=== PATIENT | male | born 1980 | race Caucasian/White ===

== ENCOUNTER 2021-03-04 17:32 | Emergency (ER) | payer MEDICAID ==
[2021-03-04] MEDS ORDERED: Sodium Chloride 0.9% 10 ML Syringe FLUSH PRN (17:54)
[2021-03-04] MEDS ORDERED: 50% Dextrose in Water 50 ML Syringe IVPUSH PRN (18:15)
--- NOTE | 2021-03-04 18:24 | EDM.PDOC ---
ED HPI GENERAL MEDICAL PROBLEM - General Chief Complaint: Neuro Symptoms/Deficits Stated Complaint: DOUBLE VISION/HISTORY OF STROKES Time Seen by Provider: 03/04/21 17:49 Source of Information: Reports: Patient History Limitations: Reports: No Limitations - History of Present Illness INITIAL COMMENTS - FREE TEXT/NARRATIVE: The patient presents with his sister for double vision. This has been going on for about a week. He also has been having ringing in his ears for about a month. He has a history of a CVA with right sided weakness. In June of 2020. He woke up with some stroke like symptoms. He was found to have a septal defect in his heart. 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 He says the double vision comes and goes. He has no headache, fever, chills, cough, chest pain, shortness of breath, abdominal pain, nausea or vomiting. Onset: Gradual Duration: Week(s): (1) Severity: Mild Improves with: Reports: None Worsens with: Reports: None Associated Symptoms: Reports: No Other Symptoms - Related Data Allergies Allergy/AdvReac Type Severity Reaction Status Date / Time No Known Allergies Allergy Verified 03/04/21 17:51 Home Meds: Home Meds Apixaban [Eliquis] 5 mg PO BID 03/04/21 [History] Baclofen 10 mg PO PCBREAKFAST 03/04/21 [History] Baclofen 20 mg PO PCDINNER 03/04/21 [History] FLUoxetine HCl [Fluoxetine HCl] 60 mg PO DAILY 03/04/21 [History] Metoprolol Tartrate 75 mg PO BID 03/04/21 [History] buPROPion HCL [Bupropion Xl] 300 mg PO DAILY 03/04/21 [History] ED ROS GENERAL - Review of Systems Review Of Systems: See Below Constitutional: Reports: No Symptoms HEENT: Reports: Other (Double vision and ringing in his ears.) Respiratory: Reports: No Symptoms Cardiovascular: Reports: No Symptoms Endocrine: Reports: No Symptoms GI/Abdominal: Reports: No Symptoms : Reports: No Symptoms Musculoskeletal: Reports: No Symptoms ED EXAM, NEURO - Physical Exam Exam: See Below Exam Limited By: No Limitations General Appearance: Alert, No Apparent Distress Eye Exam: Bilateral Eye: EOMI Ears: Normal External Exam Nose: Normal Inspection Head Exam: Atraumatic, Normocephalic Neck: Normal Inspection Respiratory/Chest: No Respiratory Distress, Lungs Clear, Normal Breath Sounds Cardiovascular: Regular Rate, Rhythm, No Edema, No Murmur GI/Abdominal: Soft, Non-Tender, No Organomegaly, No Mass Neurological: Alert, Oriented x 3, Other (Right arm is spastic and right leg has weakness.) #1 Interpretation EKG Date: 03/04/21 Time: 17:56 Rhythm: NSR Rate (Beats/Min): 64 [place]: Normal P-Wave: Present QRS: Normal ST-T: Normal QT: Normal Course - Vital Signs Last Recorded V/S: Last Vital Signs Temp 97.6 F 03/04/21 17:45 Pulse 67 03/04/21 17:45 Resp 12 03/04/21 17:45 BP 131/73 03/04/21 17:45 Pulse Ox 100 03/04/21 17:45 - Orders/Labs/Meds Orders: Active Orders 24 hr Category Date Time Status Cardiac Monitoring [RC] . DIRECTED Care 03/04/21 17:54 Active Peripheral IV Care [RC] . DIRECTED Care 03/04/21 17:55 Active CORONAVIRUS COVID-19 AVELINO [MOLEC] Stat Lab 03/04/21 18:30 Received Dextrose 50% in Water Med 03/04/21 18:15 Active 25 ml IVPUSH ASDIRECTED PRN Sodium Chloride 0.9% [Saline Flush] Med 03/04/21 17:54 Active 10 ml FLUSH ASDIRECTED PRN Peripheral IV Insertion Adult [OM.PC] Stat Oth 03/04/21 17:54 Ordered Medication Orders Dextrose/Water (50% Dextrose In Water 50 Ml Syringe) 25 ml IVPUSH ASDIRECTED PRN PRN Reason: Hypoglycemia Last Admin: 03/04/21 18:28 Dose: 25 ml Documented by: JULIANA Sodium Chloride (Sodium Chloride 0.9% 10 Ml Syringe) 10 ml FLUSH ASDIRECTED PRN PRN Reason: Keep Vein Open Last Admin: 03/04/21 18:00 Dose: 10 ml Documented by: DESMOND Labs: Laboratory Tests 03/04/21 03/04/21 03/04/21 Range/Units 17:55 17:55 17:57 WBC 5.46 (4.23-9.07) K/mm3 RBC 5.06 (4.63-6.08) M/mm3 Hgb 13.8 (13.7-17.5) gm/dl Hct 42.8 (40.1-51.0) % MCV 84.6 (79.0-92.2) fl MCH 27.3 (25.7-32.2) pg MCHC 32.2 (32.2-35.5) g/dl RDW Std Deviation 41.8 (35.1-43.9) fL Plt Count 323 (163-337) K/mm3 MPV 10.3 (9.4-12.3) fl Neut % (Auto) 49.4 (34.0-67.9) % Lymph % (Auto) 41.4 (21.8-53.1) % Mcdonald % (Auto) 6.8 (5.3-12.2) % Eos % (Auto) 2.2 (0.8-7.0) Baso % (Auto) 0.2 (0.1-1.2) % Neut # (Auto) 2.70 (1.78-5.38) K/mm3 Lymph # (Auto) 2.26 (1.32-3.57) K/mm3 Mcdonald # (Auto) 0.37 (0.30-0.82) K/mm3 Eos # (Auto) 0.12 (0.04-0.54) K/mm3 Baso # (Auto) 0.01 (0.01-0.08) K/mm3 Sodium 142 (136-145) mEq/L Potassium 3.4 L (3.5-5.1) mEq/L Chloride 104 (98-107) mEq/L Carbon Dioxide 32 (21-32) mEq/L Anion Gap 9.4 (5-15) BUN 23 H (7-18) mg/dL Creatinine 1.0 (0.7-1.3) mg/dL Est Cr Clr Drug Dosing TNP Estimated GFR (MDRD) > 60 (>60) mL/min BUN/Creatinine Ratio 23.0 H (14-18) Glucose 88 (70-99) mg/dL POC Glucose 69 L (70-99) mg/dL Calcium 8.7 (8.5-10.1) mg/dL Total Bilirubin 0.5 (0.2-1.0) mg/dL AST 13 L (15-37) U/L ALT 22 (16-63) U/L Alkaline Phosphatase 78 (46-116) U/L Troponin I < 0.017 (0.00-0.056) ng/mL Total Protein 7.4 (6.4-8.2) g/dl Albumin 3.9 (3.4-5.0) g/dl Globulin 3.5 gm/dL Albumin/Globulin Ratio 1.1 (1-2) Meds: Medications Generic Name Dose Route Start Last Admin Trade Name Adamsq PRN Reason Stop Dose Admin Dextrose/Water 25 ml 03/04/21 18:15 03/04/21 18:28 50% Dextrose In Water 50 Ml Syringe IVPUSH 25 ml ASDIRECTED PRN Administration Hypoglycemia Sodium Chloride 10 ml 03/04/21 17:54 03/04/21 18:00 Sodium Chloride 0.9% 10 Ml Syringe FLUSH 10 ml ASDIRECTED PRN Administration Keep Vein Open - Re-Assessments/Exams Free Text/Narrative Re-Assessment/Exam: 03/04/21 18:25 A stroke alert was called. The patient's last time known well was Monday the . I ordered an IV saline lock, EKG, CT of his head and labs. 03/04/21 19:14 His EKG shows a NSR with no acute changes. His CBC was negative. His K was low at 3.4. His glucose was low at 69. I gave him some IV glucose to bring that up. His troponin was negative. The CT of his head shows low density within the left posterior frontal and parietal regions with additional low density extending into the periventricular white matter and basal ganglia on the left side. This appears to be old. Craniotomy is seen in the same region. Abnormality is seen around the left petrous apex which is exta-axial in location and most likely represents a meningioma measuring up to 3cm. This causes mass effect upon the midbrain and medial temporal lobe. MRI with gadolinium is recommended to confirm this etiology. Fluid within the right maxillary sinus, rule out sinus disease. No other acute intracranial abnormality I called [facility] in [place] and talked with Dr Jolly the neurosurgeon personnel psychologist and he felt the meningioma was causing the symptoms. He says he needs an MRI and consult to an academic center like [facility], [facility] or [facility] in [place] where the patient is from. I explained this to the patient, his father and his who was on the phone. I will give him copies of his CT and the report and discharge him home. Dr Jolly said it was fine to wait until he gets back next week. Departure - Departure Time of Disposition: 19:30 Disposition: Home, Self-Care 01 Condition: Good Clinical Impression: Meningioma, Double vision Tinnitus Qualifiers: Laterality: bilateral Qualified Code(s): H93.13 - Tinnitus, bilateral - Discharge Information *PRESCRIPTION DRUG MONITORING PROGRAM REVIEWED*: Not Applicable *COPY OF PRESCRIPTION DRUG MONITORING REPORT IN PATIENT DIOMEDES: Not Applicable Referrals: PCP,Not In Area [Primary Care Provider] - Forms: ED Department Discharge Additional Instructions: Follow up with your doctor back home for an MRI and a referral to a neurosurgeon preferably at an academic center like the [facility]. Please return if you are worse. Sepsis Event Note (ED) - Evaluation Sepsis Screening Result: No Definite Risk - Focused Exam Vital Signs: Vital Signs Temp Pulse Resp BP Pulse Ox 03/04/21 17:45 97.6 F 67 12 131/73 100 - My Orders Last 24 Hours: My Active Orders 03/04/21 17:54 Cardiac Monitoring [RC] . DIRECTED Sodium Chloride 0.9% [Saline Flush] 10 ml FLUSH ASDIRECTED PRN Peripheral IV Insertion Adult [OM.PC] Stat 03/04/21 17:55 Peripheral IV Care [RC] . DIRECTED 03/04/21 18:15 Dextrose 50% in Water 25 ml IVPUSH ASDIRECTED PRN 03/04/21 18:30 CORONAVIRUS COVID-19 AVELINO [MOLEC] Stat - Assessment/Plan Last 24 Hours: My Active Orders 03/04/21 17:54 Cardiac Monitoring [RC] . DIRECTED Sodium Chloride 0.9% [Saline Flush] 10 ml FLUSH ASDIRECTED PRN Peripheral IV Insertion Adult [OM.PC] Stat 03/04/21 17:55 Peripheral IV Care [RC] . DIRECTED 03/04/21 18:15 Dextrose 50% in Water 25 ml IVPUSH ASDIRECTED PRN 03/04/21 18:30 CORONAVIRUS COVID-19 AVELINO [MOLEC] Stat
--- NOTE | 2021-03-04 18:37 | CT ---
Head CT Technique: Multiple axial sections through the brain were obtained. Intravenous contrast was not utilized. Reconstructed coronal and sagittal images were obtained. Findings: Low density is noted within the left posterior frontal and parietal regions compatible with old encephalomalacia. There is low density extending from this area into the periventricular white matter on the left side. Additional low density is seen to extend into portions of the basal ganglia on the left side. There is evidence of prior craniotomy in this area. There is an abnormality being located extra-axial around the left petrous apex. This causes mass-effect upon the brainstem as well as the medial temporal lobe. This finding is most likely due to a meningioma although MRI is recommended to confirm. This finding measures approximately 3.0 cm in size. No other abnormal parenchymal densities are seen. No evidence of intracranial hemorrhage is seen. No midline shift is seen. There is questionable fluid within the right maxillary sinus. Other visualized paranasal sinuses are clear. Visualized mastoid sinuses are clear. No acute calvarial abnormality is appreciated. Impression: 1. Low density within the left posterior frontal and parietal regions with additional low density extending into the periventricular white matter and basal ganglia on the left side. This appears to be old. Craniotomy is seen in the same region. 2. Abnormality is seen around the left petrous apex which is extra-axial in location and most likely represents a meningioma measuring up to 3.0 cm. This causes mass-effect upon the midbrain and medial temporal lobe. MRI with gadolinium is recommended to confirm this etiology. 3. Fluid within the right maxillary sinus, rule out sinus disease. 4. No other acute intracranial abnormality is otherwise seen. Diagnostic code #3
== END 2021-03-04 19:54 | disposition home or self-care (01) ==
LOC: JD.ED 17:32
DX: H93.13 Tinnitus, bilateral (principal); D32.0 Benign neoplasm of cerebral meninges; Z79.01 Long term (current) use of anticoagulants; Z20.822 Contact with and (suspected) exposure to COVID-19
CPT/HCPCS: 36415; 70450; 70450-26; 80053; 82947; 84484; 85025; 93005; 96374; 99285-25; U0002